=== PATIENT | male | born 1955 | race Caucasian/White ===

== ENCOUNTER 2018-04-22 12:04 | Outpatient (CLI) | payer MEDICARE ==
[2014-02-05 19:17] VITALS: BP 179/129
--- NOTE | 2018-04-22 17:54 | Diagnostic Imaging Report ---
CASTILLO FONG [facility] [id number] [facility] [address] [address] Report Submission Date: Apr 22, 2018 12:52:01 PM CDT Patient Study Name: TRAE HAMILTON Date: Apr 22, 2018 12:15:49 PM CDT Modality Type: DX Gender: M Description: CHEST : 51 Institution: [facility] Physician: CASTILLO FONG Examination: PA and lateral chest. History: CXR, BRONCHOSPASM, CARDIOMEGALY ON CXR FROM 2016, PH[place]IPS FOR A FEW YEARS, WORSEING RECENTLY (Hx) Comparison exam: None available for direct review. Findings: PA lateral chest demonstrate a prominent cardiac and mediastinal silhouette. No focal infiltrate. blunting of the posterior sulci. Osseous structures are appropriate for age. Impression: Posterior sulci blunting suggesting small effusion. Cardiomegaly. Correlate with previous examinations recommended when become available. Electronically signed on Apr 22, 2018 12:52:01 PM CDT by: Jese OLIVEROS
== END 2018-04-22 12:05 ==
LOC: RAD 12:04
PROVIDERS: ATTEND Family Medicine
DX: J98.01 Acute bronchospasm (principal); I51.7 Cardiomegaly
CPT/HCPCS: 71046

== ENCOUNTER 2018-05-31 14:17 | Outpatient (CLI) | payer MEDICARE ==
[2014-02-05 19:17] VITALS: BP 179/129
== END 2018-05-31 14:20 ==
LOC: CARD 14:17
PROVIDERS: ATTEND Internal Medicine Cardiovascular Disease
DX: I42.9 Cardiomyopathy, unspecified (principal); I10 Essential (primary) hypertension; I51.7 Cardiomegaly
CPT/HCPCS: G0463

== ENCOUNTER 2018-07-19 11:04 | Outpatient (CLI) | payer MEDICARE ==
[2014-02-05 19:17] VITALS: BP 179/129
== END 2018-07-19 11:06 ==
LOC: CARD 11:04
PROVIDERS: ATTEND Internal Medicine Cardiovascular Disease
DX: I42.9 Cardiomyopathy, unspecified (principal); R20.2 Paresthesia of skin; I10 Essential (primary) hypertension; G47.30 Sleep apnea, unspecified
CPT/HCPCS: G0463

== ENCOUNTER 2018-08-23 11:48 | Outpatient (CLI) | payer MEDICARE ==
[2014-02-05 19:17] VITALS: BP 179/129
== END 2018-08-23 11:50 ==
LOC: CARD 11:48
PROVIDERS: ATTEND Internal Medicine Cardiovascular Disease
DX: I42.9 Cardiomyopathy, unspecified (principal); I10 Essential (primary) hypertension; G47.30 Sleep apnea, unspecified
CPT/HCPCS: G0463